=== PATIENT | female | born 1990 | race African-American/Black ===

== ENCOUNTER 2017-11-12 12:11 | Emergency (ER) | payer OTHER, MEDICAID ==
[~2017-11-12] VITALS: Ht 172.7 cm; Wt 63.5 kg
[2017-11-12 12:40] LABS: URINE CLARITY CLEAR; URINE COLOR YELLOW; URINE SPECIFIC GRAVITY >= 1.030 (1.005-1.030)
[2017-11-12 12:41] LABS: URINE BILIRUBIN NEGATIVE (Negative); URINE BLOOD 3+ (Negative); URINE GLUCOSE-RANDOM NEGATIVE (Negative); URINE KETONES NEGATIVE (Negative); URINE NITRITE NEGATIVE (Negative); URINE PROTEIN TRACE (Negative)
[2017-11-12 12:42] LABS: URINE LEUKOCYTES NEGATIVE (Negative); URINE UROBILINOGEN 0.2 E.U./dl (0.2-1.0)
[2017-11-12 12:47] LABS: ABSOLUTE EOSINOPHILS 0.2 thou/uL (0.0-0.7); ABSOLUTE LYMPHOCYTES 2.4 thou/uL (0.8-5.3); ABSOLUTE MONOCYTES 0.6 thou/uL (0.0-1.2); BASOPHILS 0.5 %; EOSINOPHILS 2.1 %; HEMATOCRIT 40.3 % (37.0-47.0); HEMOGLOBIN 13.2 gm/dL (12.0-15.0); LYMPHOCYTES 32.8 %; MCH 29.4 pg (26.0-34.0); MCHC 32.8 g/dL (28.0-37.0); MCV 89.8 fL (80.0-100.0); MONOCYTES 8.8 %; MPV 7.8 fl. (7.2-11.1); NUCLEATED RBCS 0 /100WBC; PLATELET COUNT* 275 thou/uL (150-400); POLYS 55.8 %; RBC 4.48 mil/uL (4.20-5.00); RDW-CV 14.2 % (10.5-14.5); WBC 7.2 thou/uL (4.0-11.0)
[2017-11-12 12:53] LABS: CALCIUM 8.7 mg/dL (8.5-10.1); CREATININE 1.1 mg/dL (0.6-1.3); POTASSIUM 3.7 mmol/L (3.5-5.1)
[2017-11-12 12:55] LABS: BACTERIA 1-9 Few /HPF (None Seen); CASTS None Seen /LPF (None Seen); CRYSTALS None Seen /LPF (None Seen); MUCUS 0-3 Light strn/LPF (None Seen); SQUAMOUS 4-10 Moderate /LPF (0-3); URINE WBC 0-5 Rare /HPF (0-5)
[2017-11-12 13:02] LABS: TOTAL BILIRUBIN 0.3 mg/dL (<0.1-1.0); TOTAL PROTEIN 7.9 g/dL (6.4-8.2)
[2017-11-12] MEDS ORDERED: ONDANSETRON HCL4 M2 PO (14:10)
[2017-11-12 14:25] VITALS: BP 141/81
--- NOTE | 2017-11-13 12:30 | EKG ---
[place] [address] ELECTROCARDIOGRAM REPORT Name: STEVE BAEZ Room: [facility]#: [id number] Admission: 11/12/17 Attend Phys: Discharge: 11/12/17 Date of : 89 Report #: [id number] THIS REPORT FOR: //name// [facility] ED Test Date: 2017-11-12 Test Time: 12:53:26 Pat Name: STEVE BAEZ Department: Room: Gender: F Knitter Operator: Harman HICKS : 1990 Requested By: Maggie Potter Order Number: [id number] MD: Jean-Claude Dean Measurements Intervals [place] Rate: 64 P: 67 TX: 174 QRS: 56 QRSD: 90 T: 37 QT: 428 QTc: 442 Interpretive Statements Sinus arrhythmia No previous ECG available for comparison Electronically Signed On 11-13-2017 12:30:42 CDT by Jean-Claude Dean [email or web address] <ELECTRONICALLY SIGNED> By: Jean-Claude Dean MD, FACC 11/13/17 1230 1253 [id number] Jean-Claude Dean MD, FACC /EPI
== END 2017-11-12 14:27 | disposition home or self-care (01) ==
LOC: EDBD 12:11 → M.ERS 12:11
PROVIDERS: Nurse Practitioner Family
DX: K52.9 Noninfective gastroenteritis and colitis, unspecified (principal); F12.10 Cannabis abuse, uncomplicated

== ENCOUNTER 2018-02-17 09:36 | Emergency (ER) | payer OTHER ==
[~2018-02-17] VITALS: Ht 170.2 cm; Wt 67.1 kg
[~2018-02-17 09:36] MED LIST: ONDANSETRON HCL4 M2 PO
[2018-02-17 10:04] LABS: URINE BILIRUBIN NEGATIVE (Negative); URINE BLOOD NEGATIVE (Negative); URINE CLARITY CLEAR; URINE COLOR YELLOW; URINE GLUCOSE-RANDOM NEGATIVE (Negative); URINE KETONES NEGATIVE (Negative); URINE LEUKOCYTES-REFLEX NEGATIVE (Negative); URINE NITRITE-REFLEX NEGATIVE (Negative); URINE PROTEIN NEGATIVE (Negative); URINE SPECIFIC GRAVITY 1.015 (1.005-1.030); URINE UROBILINOGEN 0.2 E.U./dl (0.2-1.0)
[2018-02-17 10:11] LABS: ABSOLUTE BASOPHILS 0.1 thou/uL (0.0-0.2); ABSOLUTE EOSINOPHILS 0.1 thou/uL (0.0-0.7); ABSOLUTE LYMPHOCYTES 1.8 thou/uL (0.8-5.3); ABSOLUTE MONOCYTES 0.8 thou/uL (0.0-1.2); ABSOLUTE NEUTROPHILS 6.9 thou/uL (1.6-8.1); BASOPHILS 0.6 %; EOSINOPHILS 1.3 %; HEMATOCRIT 33.5 % (37.0-47.0); HEMOGLOBIN 11.3 gm/dL (12.0-15.0); LYMPHOCYTES 18.7 %; MCH 29.4 pg (26.0-34.0); MCHC 33.8 g/dL (28.0-37.0); MCV 86.9 fL (80.0-100.0); MPV 7.3 fl. (7.2-11.1); NUCLEATED RBCS 0 /100WBC; PLATELET COUNT* 261 thou/uL (150-400); POLYS 71.4 %; RBC 3.86 mil/uL (4.20-5.00); RDW-CV 14.5 % (10.5-14.5); WBC 9.6 thou/uL (4.0-11.0)
[2018-02-17 10:20] LABS: CALCIUM 8.5 mg/dL (8.5-10.1); CREATININE 0.8 mg/dL (0.6-1.3); POTASSIUM 3.5 mmol/L (3.5-5.1)
[2018-02-17 10:25] LABS: TOTAL BILIRUBIN 0.3 mg/dL (<0.1-1.0)
[2018-02-17 12:35] VITALS: BP 139/89
== END 2018-02-17 12:35 | disposition home or self-care (01) ==
LOC: M.ERS 09:36
PROVIDERS: Family Medicine
DX: O20.0 Threatened abortion (principal); Z3A.10 10 weeks gestation of pregnancy